=== PATIENT | female | born 1980 | race Asian ===

== ENCOUNTER 2023-01-07 11:28 | Outpatient (CLI) | payer BC | END 2023-01-07 11:29 | disposition home or self-care (01) | LOC: BICMAMMO 11:28 | PROVIDERS: ATTEND Family Medicine | DX: Z12.31 Encounter for screening mammogram for malignant neoplasm of breast (principal) | CPT/HCPCS: 77063; 77067 ==

== ENCOUNTER 2024-11-15 15:33 | Outpatient (CLI) | payer OTHER | END 2024-11-15 15:34 | disposition home or self-care (01) | LOC: BICMAMMO 15:33 | PROVIDERS: ATTEND Family Medicine | DX: Z12.31 Encounter for screening mammogram for malignant neoplasm of breast (principal); R89.9 Unspecified abnormal finding in specimens from other organs, systems and tissues; R76.12 Nonspecific reaction to cell mediated immunity measurement of gamma interferon antigen response without active tuberculosis | CPT/HCPCS: 71046; 77063; 77067 ==